=== PATIENT | female | born 1965 | race Caucasian/White ===

== ENCOUNTER 2024-06-09 13:25 | Inpatient (IN) | payer OTHER, SELFPAY ==
[2024-06-09] VITALS (13 sets, daily range): BP systolic 67–111; BP diastolic 55–78
[2024-06-09 12:07] LABS: % Basophils 0.9 % (0-2); % Eosinophils 6.2 % (0-6); % Immature Granulocytes 0.2 % (0-0.5); % Lymphocytes 49.6 % (20.5-51.1); % Monocytes 6.7 % (1.7-9.3); % Neutrophils 36.4 % (42.2-75.2); Absolute Basophils 0.1 10^3/uL (0-0.2); Absolute Eosinophils 0.5 10^3/uL (0-0.7); Absolute Lymphocytes 4.1 10^3/uL (1.2-3.4); Absolute Monocytes 0.6 10^3/uL (0.1-0.6); Mean Corp Hgb Conc. 35.1 g/dL (33.0-37.0); Mean Corpuscular Hgb 31.4 pg (27.0-31.0); Mean Corpuscular Volume 89.4 fL (81.0-99.0); Mean Platelet Volume 9.1 fL (7.4-10.4); Nucleated Red Blood Cells % 0 %; Platelet Count 333 10^3/uL (130-400); Red Blood Cell Count 4.14 10^6/uL (4.20-5.40); Red Cell Dist. Width 12.4 % (11.5-14.5); White Blood Cell Count 8.2 10^3/uL (4.8-10.8)
--- NOTE | 2024-06-09 12:15 | ED.GENMED ---
History of Present Illness
General
Chief Complaint: Chest Pain
Source: patient and ambulance crew
Exam Limitations: none
Time Seen by Provider: 06/09/24 11:53
Nursing documentation reviewed up to this point in time: agreed with
History of Present Illness
History of Present Illness:
58-year-old female with a past medical history of hypertension who presents to the emergency department for evaluation of chest pain. Prehospital EKG called STEMI, communicated with EMS prehospital and a prehospital STEMI alert called. She reports
acute onset of symptoms just prior to EMS arrival roughly 20 to 30 minutes prior to hospital arrival. She reports she was talking on the phone and had sudden onset chest pain and tingling in her arms. Reports mild nausea had an episode of vomiting
prehospital. She received aspirin prehospital. Her normal laundry helper is Dr. Bustamante through [facility].
Review of Systems
Review of Systems
Unable to obtain full review of systems at this time due to: due to acuity
All Other Systems: Not applicable
Respiratory: Denies trouble breathing
Cardiac: Reports chest pain
ABD/GI: Reports nausea and vomiting; Denies abdominal pain
Musculoskeletal: Denies edema
Neurological: Denies headache
Phy Exam
Physical Exam
Physical Exam:
General: Awake, alert, appears uncomfortable
Head: Normocephalic, atraumatic
Eyes: Conjunctiva normal, sclera anicteric
Throat: Airway intact, handling secretions
Neck: Trachea midline, supple without meningismus
Lungs: Clear to auscultation bilaterally, no wheezing, rales, rhonchi
Heart: Regular rate and rhythm, no murmurs, gallops, or rubs
Abd: Soft, non distended, nontender
Neuro: No gross deficits
Skin: Moist
Extremities: No edema in extremities, equal pulses in all extremities
Scores
Heart Failure Risk
Heart Failure Risk Score: Not Applicable
Heart Score for Chest Pain Patients
STEMI patient?: Yes
Withdrawal Assessment of Alcohol
Withdrawal Assessment Completed?: Not applicable
Course
Orders/Labs/Results
Orders:
Orders
06/09/24 11:48
Electrocardiogram (*1) Urgent
Reason for Study: Chest Pain
EKG- Treatment ONCE
06/09/24 11:52
Complete Blood Count/With Diff Urgent
Comprehensive Metabolic Panel Urgent
Troponin I Urgent
06/09/24 12:08
Fentanyl Citrate/Pf [Sublimaze] 100 mcg .ROUTE .STK-MED ONE
Midazolam HCl [Versed] 2 mg .ROUTE .STK-MED ONE
06/09/24 12:09
Heparin 1000 Units/500 ml [Heparin] 1,000 units in 500 ml .ROUTE .STK-MED
Heparin Sodium,Porcine/Ns/Pf [Heparin 2000 Units/1000 ml] 2,000 unit in 1,000 ml .ROUTE .STK-MED
Lidocaine HCl/Pf [Xylocaine-Mpf 1% Vial] 50 mg .ROUTE .STK-MED ONE
Nitroglycerin [Tridil] 1,500 mcg .ROUTE .STK-MED ONE
06/09/24 12:16
Prothrombin Time Urgent
Abnormal Lab Results
06/09/24
11:52
RBC 4.14 L 10^6/uL
(4.20-5.40)
MCH 31.4 H pg
(27.0-31.0)
Absolute Lymphs (auto) 4.1 H 10^3/uL
(1.2-3.4)
Neutrophils % 36.4 L %
(42.2-75.2)
Eosinophils % 6.2 H %
(0-6)
Potassium 3.2 L mmol/L
(3.5-5.1)
Carbon Dioxide 18 L mmol/L
(22-30)
BUN 21 H mg/dl
(7-17)
Glucose 139 H mg/dl
(70-99)
Troponin I 0.132 H* ng/ml
06/09/24 11:52
06/09/24 11:52
Vital Signs
Initial and Last Documented VS:
Initial Vital Signs
Pulse Resp BP Pulse Ox
74 16 83/70 97
06/09/24 11:47 06/09/24 11:47 06/09/24 11:47 06/09/24 11:47
Last Documented Vital Signs
Temp Pulse Resp BP Pulse Ox
36.0 C L 75 15 108/75 100
06/09/24 12:02 06/09/24 12:03 06/09/24 11:55 06/09/24 12:04 06/09/24 12:03
MDM/Problems Addressed
Differential Diagnosis Includes:
STEMI
MDM/Problems Addressed:
58-year-old female with a history of hypertension presents to the ER with chest pain�prehospital EKG showed STEMI and prehospital STEMI alert called. Case discussed with commercial housekeeper, Replenishment Specialist activated. On arrival patient mildly
hypotensive additional IV access placed and patient given IV fluids. She was also given Brilinta and heparin bolus. Patient met by cardiology shortly after arrival, escorted to Replenishment Specialist.
Chronic conditions affecting care:
Hypertension
*Pulse Oximetry
Patient hypoxic: no
*EKG
Interpreted by ED Provider?: Yes
Heart Rate: 65
Rate: normal
Rhythm: sinus
[place]: normal axis
Interval: normal interval
QRS Pattern: normal QRS
Ischemia: ST elevation (Inferior STEMI)
*Critical Care Note
Total Time (30-74mins, 75-104mins- exclusive of procedures): 30
comment:
Critical care statement: A total of 30 minutes of critical care time was provided for this patient. This includes management of unstable vital signs, evaluation of the patient at bedside, frequent reassessment, discussion with
consultants/hospitalist, and review of pertinent medical records. This time was separate from time utilized to perform any aforementioned documented procedures
Data Reviewed
Source: patient and ambulance crew
Patient Management
Discussion with other providers: Tank Hoop Bender (Discussed with commercial housekeeper)
Escalation/DeEscalation of care consider admission/obs:
Admission indicated�Replenishment Specialist
ED Attending Note
-
Portions of this chart may have been created with voice recognition software.� Occasional wrong word or��sound alike� substitutions may have occurred due to the inherent limitations of voice recognition software.
Discharge Plan
Departure
Patient Disposition: ADMINISTRATIVE MANAGER
Date of Disposition: 06/09/24
Time of Disposition: 12:14
Admit to doctor: Sugey
Presentation/result/management discussed w/ accepting MD/DO: Cardiology
Discharge Problem:
ST elevation (STEMI) myocardial infarction
Interventions
Interventions:
*Risk Screen - Suicide Last Done: 06/09/24 11:47
*General Assessment Last Done: 06/09/24 11:47
*Neglect/Abuse Screening Last Done: 06/09/24 11:47
*ED COVID-19 Vaccine History Last Done: 06/09/24 11:47
*Nursing Disposition Last Done: 06/09/24 12:30
ED- Cardiac Assessment Last Done: 06/09/24 11:59
Discharge Date and Time
Discharge Date/Time: 06/09/24 12:31
[2024-06-09 12:31] LABS: ALT (SGPT) 14 U/L (0-35); AST (SGOT) 24 U/L (14-36); Albumin 4.2 g/dl (3.5-5.0); Alkaline Phosphatase 90 U/L (38-126); Blood Urea Nitrogen 21 mg/dl (7-17); Calcium 9.2 mg/dl (8.4-10.2); Carbon Dioxide 18 mmol/L (22-30); Chloride 107 mmol/L (98-107); Glucose 139 mg/dl (70-99); Potassium 3.2 mmol/L (3.5-5.1); Sodium 139 mmol/L (135-145); Total Bilirubin 0.6 mg/dl (0.2-1.3); Total Protein 6.7 g/dl (6.3-8.2); Troponin I 0.132 ng/ml; eGFR > 60.00
[2024-06-09 12:34] LABS: ACT-LR - POC 202 Seconds (116-155)
[2024-06-09 12:44] LABS: ACT-LR - POC 234 Seconds (116-155)
[2024-06-09 13:02] LABS: ACT-LR - POC 279 Seconds (116-155)
--- NOTE | 2024-06-09 13:14 | ITS.CL.CATH ---
Sunglass Clip Attacher - Catheterization
Cardiac Catheterization
Procedure Report:
LEFT HEART CATH AND CORONARY INTERVENTION
Date of Procedure: June 09, 2024
Referring: [facility] Emergency Department
PROCEDURES:
1. Left heart catheterization with coronary and single-plane left ventriculography
2. Successful stenting of 100% occluded RCA with placement of overlapping 3.0 x 38 mm and 3.0 x 23 mm [place] stents that were implanted at nominal pressures and postdilated to high pressures with a 3.25 mm noncompliant balloon
INDICATION: This is a 58-year-old female who called 911 approximately 30 minutes after the onset of crushing substernal chest pressure. Her prehospital electrocardiogram was notable for inferior ST segment elevation and a prehospital STEMI alert
was activated. Upon arrival to [facility] patient continued to experience 9/10 substernal chest pressure with ongoing electrocardiographic changes. She will now be referred for emergent coronary angiography
ACCESS: No palpable radial pulse. Ultrasound guidance was utilized to obtain access in the right common femoral artery and right common femoral vein using micropuncture technique.
HEMODYNAMICS (mmHg):
AO (s/d, m) : 116/72
LV (s/d) : 116/17
LVEDP : 28
CORONARY FINDINGS
Dominance: Right
LEFT MAIN: 20% distal tapering
LEFT ANTERIOR DESCENDING: The LAD arises normally from the left main and runs in the anterior interventricular groove supplying a small diagonal branch arising from the mid LAD. The LAD has minor irregularities over its course but no focal
obstructive stenosis.
RAMUS: Small caliber vessel with minor irregularities
CIRCUMFLEX: The circumflex is a medium caliber nondominant vessel supplying 2 obtuse marginal branches. The first obtuse marginal branch arises very proximally and has a proximal 40% stenosis. The circumflex terminates in a small to medium caliber
OM 2
RIGHT CORONARY: The right coronary artery is a dominant vessel with a proximal 50% mid 60-70% and mid-distal 100% occlusion beyond the RV marginal branch
VENTRICULOGRAPHY: Left ventriculography was performed in an FERNANDES projection. The digital single-plane left ventricular ejection fraction is visually estimated at 40-45% with posterior basal and diaphragmatic inferior hypokinesis
ANGIOPLASTY PROCEDURE DETAIL: Upon review of the diagnostic catheterization films the decision was made to proceed with percutaneous revascularization of the infarct related 100% occluded mid RCA. Intravenous heparin was administered. The patient
was na�ve to antiplatelet therapy and a double bolus of Integrilin was administered as well. The origin of the right coronary artery was cannulated with a 6 Chinese JR4 guiding catheter and a BMW guidewire crossed the occluded segment in the
mid-distal RCA with only a minor degree of difficulty. Balloon predilation was performed using a 2.0 x 12 mm Euphora balloon. Antegrade flow was restored to the distal right coronary artery. The patient became bradycardic and hypotensive.
Atropine, 0.5 mg, was administered along with a bolus of normal saline. Her heart rate improved following the atropine. A 3.0 x 38 mm Denver stent was then advanced over the guidewire and position with angiographic and fluoroscopic guidance. The
stent was implanted at 14 bassam. A second 3.0 x 22 mm Zak stent was positioned proximal to and overlapping with the mid RCA stent. The proximal RCA stent was implanted at nominal pressures. The entire stented segment was postdilated with a 3.25 mm
noncompliant balloon between 14 and 20 bassam with an excellent angiographic result
RADIATION SUMMARY: Fluoro Time (min): 9.5, Dose (mGy): 686, DAP (Gy.cm2) : 42.9
CONCLUSIONS
1. Evolving inferior wall myocardial infarction treated with angioplasty and stenting of the proximal to mid RCA with overlapping 3.0 x 22 mm and 3.0 x 38 mm Denver stents that were postdilated to high pressures with a 3.25 mm noncompliant balloon
2. Ischemic cardiomyopathy with posterior basal and diaphragmatic inferior hypokinesis
RECOMMENDATIONS
1. Uninterrupted dual antiplatelet therapy for 1 year
2. High intensity statin therapy and aggressive blood pressure control.
3. Smoking cessation
Copy to: Dr. Fransico Lopez
[2024-06-09 14:09] LABS: INR 1.21; PT 15.6 Sec (11.4-14.6)
[2024-06-09] MEDS: PROTONIX 40 MG PO (19:29)
[2024-06-09] MEDS: LOVENOX 40 MG SC (19:29)
[2024-06-09] MEDS: LIPITOR 80 MG PO (19:29)
[2024-06-09] MEDS: BENADRYL 25 MG PO (19:29)
[2024-06-09] MEDS: BRILINTA 90 MG PO (19:50)
[2024-06-10] VITALS (7 sets, daily range): BP systolic 100–132; BP diastolic 51–77; BMI 28.1
--- NOTE | 2024-06-10 01:53 | PTCARENOTE ---
Assumed care of pt at change of shift. NSR on tele with occasional PVCs, HR 60s-70s. Pt denies CP and SOB. R groin cath site with small amount of old drainage noted on dressing, otherwise without complications. Plan of care discussed and pt
verbalizes understanding. Call soliz within reach.
[2024-06-10 03:50] LABS: Hematocrit 32.8 % (37.0-47.0); Hemoglobin 11.5 g/dL (12.0-16.0); Mean Corp Hgb Conc. 35.1 g/dL (33.0-37.0); Mean Corpuscular Volume 88.4 fL (81.0-99.0); Mean Platelet Volume 9.1 fL (7.4-10.4); Platelet Count 255 10^3/uL (130-400); Red Blood Cell Count 3.71 10^6/uL (4.20-5.40); Red Cell Dist. Width 12.5 % (11.5-14.5); White Blood Cell Count 9.1 10^3/uL (4.8-10.8)
[2024-06-10 04:12] LABS: Blood Urea Nitrogen 17 mg/dl (7-17); Calcium 9.1 mg/dl (8.4-10.2); Carbon Dioxide 21 mmol/L (22-30); Chloride 107 mmol/L (98-107); Glucose 107 mg/dl (70-99); HDL Cholesterol 38 mg/dl; LDL Cholesterol, Calculated 147 mg/dl; Potassium 3.6 mmol/L (3.5-5.1); Sodium 137 mmol/L (135-145); Total Cholesterol 210 mg/dl (50-199); Triglyceride 127 mg/dl (10-149); Very Low Density Lipoprotein 25 mg/dl (0-30); eGFR > 60.00
--- NOTE | 2024-06-10 08:00 | PTCARENOTE ---
Assumed care of pt from prev nsg shift; Pt AAOX3 w/no c/o CP or SOB. Pt's VS stable w/HR in the 60's-70's & BP 116/71 this AM. Pt is SR on telemetry monitoring. Pt w/R groin access site w/dressing dry & intact w/some old marked drainage unchanged
from last night's assessment. Pt given ACS/CAD medication info sheet, discussed w/pt, & emotional support provided. Pt w/call soliz within reach & plan of care ongoing.
[2024-06-10] MEDS: BRILINTA 90 MG PO ×2 (09:01→20:25)
[2024-06-10] MEDS: LOW STRENGTH ASPIRIN 81 MG PO (09:01)
[2024-06-10] MEDS: PROTONIX 40 MG PO (09:01)
--- NOTE | 2024-06-10 09:21 | W.PN.CARDCBS ---
Today's Communication / Plan
-
Stable cardiology status status post RCA stent for acute and prolonged mild 06/09/2019
Add Toprol low-dose if blood pressure tolerates
Check echo
Impression / Plan
-
Impression:
Status postacute inferolateral VT with peak troponin of 58.7/status post stent of mid RCA 06/09/2024
Ejection fraction 40-45% with posterior basal and diaphragmatic inferior hypokinesis on LV gram
Hypertension
Plan:
Patient doing very well status post RCA stent for acute care for mild 06/09/2024
Continue aspirin and Brilinta as well as Lipitor
Will add low-dose Toprol 12.5 mg daily
Check echo
Progress Note - Behavioral Health Aide
Subjective
Date of Service: June 10, 2024
No complaints
Objective
Labs:
06/10/24 03:13
06/10/24 03:13
Labs
Hgb 11.5 g/dL (12.0-16.0) L 06/10/24 03:13
Hct 32.8 % (37.0-47.0) L 06/10/24 03:13
Plt Count 255 10^3/uL (130-400) D 06/10/24 03:13
PT 15.6 Sec (11.4-14.6) H 06/09/24 13:47
INR 1.21 06/09/24 13:47
Sodium 137 mmol/L (135-145) 06/10/24 03:13
Potassium 3.6 mmol/L (3.5-5.1) 06/10/24 03:13
BUN 17 mg/dl (7-17) 06/10/24 03:13
Creatinine 0.8 mg/dL (0.6-1.0) 06/10/24 03:13
Glucose 107 mg/dl (70-99) H 06/10/24 03:13
Troponins
06/09/24 06/09/24 06/09/24
11:52 13:47 19:57
Troponin I 0.132 H* 6.090 H* D 58.700 H* D
06/10/24
03:13
Troponin I 44.100 H*
Vital Signs and I&O:
Vital Signs
Temp Pulse Resp BP Pulse Ox
97.9 F 70 20 116/71 98
06/10/24 07:20 06/10/24 07:22 06/10/24 07:20 06/10/24 07:22 06/10/24 07:20
Vital Signs
Temp Pulse Resp BP Pulse Ox
97.9 F 70 20 116/71 98
06/10/24 07:20 06/10/24 07:22 06/10/24 07:20 06/10/24 07:22 06/10/24 07:20
Intake & Output
06/08/24 06/09/24 06/10/24 06/11/24
06:59 06:59 06:59 06:59
Intake Total 1220 / 1220
Output Total 450 / 450
Balance 770 / 770
Physical Exam
Physical Exam
General: Well developed, well nourished in NAD.
Neck: Supple, no JVD, HJR, carotids +2 B/L, no bruits bilaterally.
Heart: Non displaced PMI, RRR, no murmurs, No S3, S4, no rubs.
Lungs: Clear to auscultation bilaterally, no wheeze, rhonchi, rubs bilaterally,
normal expiratory phase.
Extremities: No clubbing, cyanosis or edema bilaterally.
Neuro: Grossly nonfocal, awake, alert and oriented x3.
[2024-06-10 10:43] LABS: Glycohemoglobin (HgbA1c) 5.1 % (4.0-5.6)
[2024-06-10] MEDS: LIPITOR 80 MG PO (18:36)
[2024-06-10] MEDS: LOVENOX 40 MG SC (18:38)
[2024-06-11 02:51] VITALS: BP 105/66
--- NOTE | 2024-06-11 05:27 | PTCARENOTE ---
Rec'd pt at change of shift. Pt AAO*3, in NSR, and VSS. Pt denies any pain or discomfort. Pt updated on plan of care and verbalizes understanding. Pt with R femoral site CDI. Pt denies any questions or concerns at this time. Pt resting with
call soliz in reach. See flowchart, MAR, and worklist for full assessment.
[2024-06-11 06:00] VITALS: BMI 28.1
[2024-06-11 08:19] VITALS: BP 106/73
[2024-06-11] MEDS: PROTONIX 40 MG PO (08:21)
[2024-06-11] MEDS: BRILINTA 90 MG PO (08:22)
[2024-06-11] MEDS: LOW STRENGTH ASPIRIN 81 MG PO (08:22)
--- NOTE | 2024-06-11 09:10 | W.PN.CARDCBS ---
Addendum entered and electronically signed by Noah Graham MD 06/11/24 12:34:
I saw and examined the patient.
The CONSUMER INSIGHT MANAGER or PA's note was reviewed and I agree with the note.
Comment: General: Well developed, well nourished in NAD.
Neck: Supple, no JVD, HJR, carotids +2 B/L, no bruits bilaterally.
Heart: Non displaced PMI, RRR, no murmurs, No S3, S4, no rubs.
Lungs: Clear to auscultation bilaterally, no wheeze, rhonchi, rubs bilaterally,
normal expiratory phase.
Extremities: No clubbing, cyanosis or edema bilaterally.
Neuro: Grossly nonfocal, awake, alert and oriented x3.
Echocardiogram and ejection fraction of 45 to 50%. Stable cardiology status for discharge. Follow-up arranged. Discussed with patient and in detail
Original Note:
Today's Communication / Plan
-
D/C to home today
Impression / Plan
-
PCP: Dr. Lopez
Cardiology: Dr. Bustamante
Impression:
Acute inferolateral wall AZ on admission, peak Troponin 58.7 06/09/24
CAD s/p overlapping 3.0 x 38 mm and 3.0 x 23 mm [place] stents to 100% occluded RCA 06/09/24
ICM EF 45-50% by echo 06/11/24
HTN
Smoker
Hyperlipidemia
Echo 06/11/2024: Preliminary report, EF 45 to 50%, mild MR
Plan:
-Patient came to [facility] with chest pain and pre-hospital STEMI alert 06/09/24. In the Pole Framer Machine patient was found to have 100% occlusion of RCA which was treated with overlapping 3.0 x 38 mm and 3.0 x 23 mm Zak stents.
-Tolerating aspirin and Brilinta. Appreciate help of CM on checking cost of Brilinta, patient has commercial insurance and should be able to use the co-pay card. Discussed the importance of DAPT with the patient and her and that she cannot
interrupt Brilinta therapy without consent from her gyroscope technician. We discussed aspirin being a lifelong therapy.
-Patient was taking amlodipine unknown dose daily prior to admission and this has been stopped.
-Start Toprol-XL 12.5 mg daily on 06/11/2024
-LDL 147 and new to atorvastatin 80 mg daily
-Patient reports that she would like to return to work on 06/19/2023 and note was given for work. Patient was asked that if she has any [facility] paperwork that she should follow-up with her primary gyroscope technician for this.
-D/C to home 06/11/24. Called the patient's primary cardiology office and their next available appointment is in August, explained that patient had an AZ we need to be seen sooner and so they are waiting to talk to their imaging scheduler and reports that
they are going to call patient themselves with a follow-up appointment. This information was also given to the patient on her discharge instructions so that if she does not hear from their office she can give them a call herself.
Progress Note - Top Lift Nailer
Subjective
Date of Service: June 11, 2024
Feels well, no chest pain, wants to go home
Objective
Labs:
06/10/24 03:13
06/10/24 03:13
Labs
Hgb 11.5 g/dL (12.0-16.0) L 06/10/24 03:13
Hct 32.8 % (37.0-47.0) L 06/10/24 03:13
Plt Count 255 10^3/uL (130-400) D 06/10/24 03:13
PT 15.6 Sec (11.4-14.6) H 06/09/24 13:47
INR 1.21 06/09/24 13:47
Sodium 137 mmol/L (135-145) 06/10/24 03:13
Potassium 3.6 mmol/L (3.5-5.1) 06/10/24 03:13
BUN 17 mg/dl (7-17) 06/10/24 03:13
Creatinine 0.8 mg/dL (0.6-1.0) 06/10/24 03:13
Glucose 107 mg/dl (70-99) H 06/10/24 03:13
Troponins
06/09/24 06/09/24 06/09/24
11:52 13:47 19:57
Troponin I 0.132 H* 6.090 H* D 58.700 H* D
06/10/24
03:13
Troponin I 44.100 H*
Vital Signs and I&O:
Vital Signs
Temp Pulse Resp BP Pulse Ox
97.9 F 65 18 105/66 96
06/11/24 08:19 06/11/24 06:00 06/11/24 08:19 06/11/24 02:51 06/11/24 08:19
Vital Signs
Temp Pulse Resp BP Pulse Ox
97.9 F 65 18 105/66 96
06/11/24 08:19 06/11/24 06:00 06/11/24 08:19 06/11/24 02:51 06/11/24 08:19
Intake & Output
06/09/24 06/10/24 06/11/24 06/12/24
06:59 06:59 06:59 06:59
Intake Total 1220 / 1220 1440 / 1440
Output Total 450 / 450
Balance 770 / 770 1440 / 1440
Physical Exam
Physical Exam
GEN: NAD. AAOx3
HEENT: MMM
LUNGS: RA. No audible wheeze
CV: SR on tele review by me
ABD: ND
EXT: No edema B/L
NEURO: Gross non-focal
SKIN: No rash
--- NOTE | 2024-06-11 10:15 | CARDSERVLU ---
Echocardiogram with Lumason completed after protocol screening completed. Allergies verified.
Patent IV site: __R wrist___
IV site flushed with 0.9% NaCl pre and post administration.
Diluted bolus method utilized to enhance visualization of ventricular ritter.
Total volume given: __2.5__ mL
Patient tolerated all procedures well without complications.
[2024-06-11 11:50] VITALS: BP 109/76
--- NOTE | 2024-06-11 12:09 | W.DS.TRANS ---
DC Summary - Coal Conveyor Operator
-
Discharge Instructions:
Discharge Diagnosis/Procedures acute inferior wall myocardial infarction,
Successful stenting of 100% occluded right
coronary artery with placement of overlapping 3.
0 x 38 mm and 3.0 x 23 mm Zak stents
Diet Low Fat,Low Sodium
Activity Other activity
Driving Restrictions As prior to admission
Bathing Restrictions OK to Shower
Other Services Cardiac Rehab
Instructions:
Stand-Alone Forms: DC Instructions- Cath/EP Lab
Changes to Home Medications: Yes
Discharge Medications:
DC Medications w/original date entered in [facility]
aspirin 81 mg chewable tablet 81 mg PO DAILY Heart disease/condition #30 tabs 06/11/24
atorvastatin 80 mg tablet 80 mg PO QPM High cholesterol #30 tabs 06/11/24
metoprolol succinate 25 mg tablet,extended release 24 hr (Toprol XL) 12.5 mg (1/2 x 25 mg) PO DAILY Heart disease/condition #30 tabs 06/11/24
pantoprazole 40 mg tablet,delayed release 40 mg PO DAILY Gastrointestinal issue #30 tabs 06/11/24
ticagrelor 90 mg tablet (Brilinta) 90 mg PO BID Heart disease/condition #60 tabs 06/11/24
Home Medication Changes
New to aspirin, Brilinta, atorvastatin, Toprol XL and Protonix
Amlodipine stopped
Pending Results: No
[2024-06-11] MEDS: TOPROL XL 12.5 MG PO (12:56)
[2024-06-11 14:49] LABS: ACT-LR - POC 168 Seconds (116-155)
--- NOTE | 2024-06-11 15:52 | CM ---
spoke to pt in room, she is prev indep, lives with her husb in a 2 story home with no steps toenter. she denies any dc planning needs. she denies any dme's. plan is for dc to home when medically stable.
--- NOTE | 2024-06-11 15:54 | CM ---
priced andrae at pt's pharmacy, her cost is $9/month but it is not in stock. [facility]- [facility] it in stock, pt given a 30 day free coupon to and a 30 day script was sent, pt agreeable to picking crew supervisor andrae there
== END 2024-06-11 14:47 | disposition home or self-care (01) | DRG 322 ==
LOC: IVU 13:25
PROVIDERS: ADMITTING PHYSICIAN Internal Medicine Interventional Cardiology; EMERGENCY PHYSICIAN Emergency Medicine
PROC: 027035Z Dilation of Coronary Artery, One Artery with Two Drug-eluting Intraluminal Devices, Percutaneous Approach (ICD-10-PCS; 2024-06-09)
PROC: B2111ZZ Fluoroscopy of Multiple Coronary Arteries using Low Osmolar Contrast (ICD-10-PCS; 2024-06-09)
PROC: B2151ZZ Fluoroscopy of Left Heart using Low Osmolar Contrast (ICD-10-PCS; 2024-06-09)
PROC: 4A023N7 Measurement of Cardiac Sampling and Pressure, Left Heart, Percutaneous Approach (ICD-10-PCS; 2024-06-09)
DX: I21.19 ST elevation (STEMI) myocardial infarction involving other coronary artery of inferior wall (principal); I25.10 Atherosclerotic heart disease of native coronary artery without angina pectoris; I25.5 Ischemic cardiomyopathy; I10 Essential (primary) hypertension; E78.5 Hyperlipidemia, unspecified; F17.210 Nicotine dependence, cigarettes, uncomplicated
CPT/HCPCS: 80048; 80053; 80061; 83036; 84484; 85025; 85027; 85347; 85610; 93005; 93306; 93458; 96374; 99291; 99406; C1725; C1760; C1769; C1874; C1894; C9606; J1327; Q9950; Q9967

== ENCOUNTER 2024-07-09 12:57 | Outpatient (RCR) | payer OTHER, SELFPAY | END 2024-07-09 23:59 | disposition home or self-care (01) | LOC: CRHB 12:57 | PROVIDERS: ATTENDING PHYSICIAN Internal Medicine Interventional Cardiology | DX: I21.01 ST elevation (STEMI) myocardial infarction involving left main coronary artery (principal); Z95.5 Presence of coronary angioplasty implant and graft | CPT/HCPCS: 93797; 93798 ==